=== PATIENT | male | born 1980 | race Two or more races ===

== ENCOUNTER 2016-03-23 12:42 | Emergency (ER) | payer SELFPAY ==
[~2016-03-23] VITALS: Ht 165.1 cm; Wt 108.9 kg
[2016-03-23 13:09] VITALS: BP 127/88
== END 2016-03-23 13:37 | disposition home or self-care (01) ==
LOC: ER 12:52
DX: S39.012A Strain of muscle, fascia and tendon of lower back, initial encounter (principal); H10.89 Other conjunctivitis; B99.9 Unspecified infectious disease; M25.561 Pain in right knee; V59.49XA Driver of pick-up truck or van injured in collision with other motor vehicles in traffic accident, initial encounter; Y93.89 Activity, other specified; Y99.8 Other external cause status; Y92.488 Other paved roadways as the place of occurrence of the external cause

== ENCOUNTER 2016-03-25 17:10 | Emergency (ER) | payer MEDICAID ==
[~2016-03-25] VITALS: Ht 160 cm; Wt 104.3 kg
[2016-03-25] MEDS ORDERED: InsuLIN REG 1unit/0.01ml Soln (100units/ml) IV ONE (19:30)
[2016-03-25] MEDS ORDERED: SODIUM CHLORIDE 0.9% 1,000 ML IV ONE ×2 (19:30→22:15)
[2016-03-25 20:18] LABS: Basophils # (auto) 0 uL; Basophils % (auto) 0.4 % (0.0-2.0); Eosinophils # (auto) 0.1 uL; Eosinophils % (auto) 1.1 % (0.0-7.0); Hematocrit 48.7 % (41.0-53.0); Hemoglobin 16.1 g/dL (13.5-17.5); Lymphocytes # (auto) 3.1 uL; Mean Corpuscular Hemoglobin 29.1 pg (28.0-32.0); Mean Corpuscular Hgb Conc. 33.1 g/dL (32.0-36.0); Mean Corpuscular Volume 87.8 fL (80.0-100.0); Monocytes # (auto) 0.7 uL; Monocytes % (auto) 8.1 % (0.0-12.0); Neutrophils # (auto) 4.4 uL; Neutrophils % (auto) 53.4 % (37.0-80.0); Platelet Count (auto) 237 10^3/uL (140-450); Red Cell Distribution Width 12.9 % (11.6-16.0); White Blood Cell 8.3 10^3/uL (4.4-10.8)
[2016-03-25 20:30] LABS: Albumin 3.5 g/dL (3.4-5.0); BUN/Creatinine Ratio 16.2; Calcium 8.1 mg/dL (8.5-10.1); Potassium 3.8 mmol/L (3.5-5.1)
[2016-03-25 20:31] LABS: Bilirubin, Total 0.4 mg/dL (0.2-1.0); Total Protein 7.4 g/dL (6.4-8.2)
[2016-03-25] MEDS ORDERED: FLUORESCEIN SOD 1 MG TEST STRIP LEFTEYE ONE (20:45)
[2016-03-25] MEDS ORDERED: TETRACAINE HCL 0.5% OPTH(EYE) SOLN 2ML LEFTEYE ONE (20:45)
[2016-03-25] MEDS: TOBRAMYCIN SULF 0.3% OPTH(EYE) SOLN 5ML LEFTEYE SCH ×2 (21:25→21:35)
[2016-03-25] MEDS ORDERED: TOBRAMYCIN SULF 0.3% OPTH(EYE) OINT 3.5GM LEFTEYE ONE (21:30)
[2016-03-25 21:58] VITALS: BP 130/84
== END 2016-03-25 22:32 | disposition short-term general hospital (02) ==
LOC: ER 17:20 → EDUNIT# 17:20 → ER 22:32
DX: T15.92XA Foreign body on external eye, part unspecified, left eye, initial encounter (principal); H54.62 Unqualified visual loss, left eye, normal vision right eye; H43.12 Vitreous hemorrhage, left eye; E11.9 Type 2 diabetes mellitus without complications; V49.49XA Driver injured in collision with other motor vehicles in traffic accident, initial encounter; Y93.89 Activity, other specified; Y99.8 Other external cause status; Y92.410 Unspecified street and highway as the place of occurrence of the external cause
CPT/HCPCS: 36415; 65222; 70450; 70480; 80053; 82962; 85025; 85049; 96361; 96374; 99285; J1815; J7030